=== PATIENT | female | born 1970 | race Caucasian/White ===

== ENCOUNTER → 2016-06-20 | Outpatient (CLI) | payer OTHER ==
[~2016-06-20] MED LIST: ADVIN50/60 INH; ALBUAER19 INH; BUPR200T2 PO; CETI10TA84 PO; CHOL20009 PO; CLR10 PO; FLUO40CA8 PO; GEMF600T3 PO; GUAI100L PO; HYDR-5688 PO; IPRA1AER2 INH; LANS15TA2 PO; MEDR5TAB PO; MELO7.5T7 PO; MONT1TAB3 PO; OMEP20CA9 PO; ONDA4TAB4 PO; ONDA4TAB46 PO; PRED10TA PO; PRED50TA PO; RANI300T2 PO; TEMA30CA4 PO
--- NOTE | 2016-06-20 10:58 | DIAGNOSTIC IMAGING REPORT ---
CHEST 2 VIEWS ROUTINE CLINICAL HISTORY: Shortness of breath COUGH COMPARISON STUDY: 06/06/2012 FINDINGS: The heart is normal in size. There is stable mild elevation/eventration right hemidiaphragm. There is no focal pulmonary consolidation. There is no failure. There are no pleural effusions.[ IMPRESSION: No active disease in the chest. Electronically signed by: Tomas Denney M.D. 06/20/2016 10:56 AM
== END | disposition home or self-care (01) ==
LOC: C.RADPV 10:42
PROVIDERS: ATTEND Family Medicine
DX: R06.02 Shortness of breath (principal)

== ENCOUNTER → 2016-08-10 | Outpatient (CLI) | payer OTHER ==
[2016-08-10 12:59] LABS: BLOOD UREA NITROGEN 16 mg/dl (7-18); BUN/CREATININE RATIO 14.1 (10-20); CALCIUM 9.3 mg/dl (8.5-10.1); CARBON DIOXIDE 27 mmol/L (21-32); CHLORIDE 100 mmol/L (98-107); GLUCOSE 105 mg/dl (70-99); POTASSIUM 3.8 mmol/L (3.5-5.1); SODIUM 137 mmol/L (136-145)
[2016-08-10 13:38] LABS: CHOLESTEROL/HDL RATIO 3.8
== END | disposition home or self-care (01) ==
LOC: C.LABPVFM 09:55
PROVIDERS: ATTEND Nurse Practitioner
DX: R73.01 Impaired fasting glucose (principal); E78.1 Pure hyperglyceridemia; F32.9 Major depressive disorder, single episode, unspecified

== ENCOUNTER → 2016-08-18 | Outpatient (CLI) | payer OTHER ==
[2016-08-18 12:27] LABS: BASO % 0.5 %; BASO ABS # 0.06 K/uL (0-0.2); COMPLETE YES; HEMATOCRIT 42.1 % (37-47); IG% 0.6 %; LYMPH % 32.9 %; LYMPH ABS # 3.71 K/uL (1.2-3.4); MEAN CELL VOLUME 87.9 fL (80-100); MEAN CORPUSCULAR HEMOGLOBIN 30.3 pg (25-34); MEAN CORPUSCULAR HGB CONC 34.4 g/dl (32-36); MEAN PLATELET VOLUME 11.4 fL (7.4-10.4); MONO % 9.4 %; NEUT % 55.6 %; PLATELET COUNT 297 K/uL (130-400); RED BLOOD COUNT 4.79 M/uL (4.2-5.4); WHITE BLOOD COUNT 11.27 K/uL (4.8-10.8)
[2016-08-18 13:20] LABS: ESTIMATED AVERAGE GLUCOSE 117 mg/dl; HA1C FLAG Normal (Normal)
== END | disposition home or self-care (01) ==
LOC: C.LABPVFM 08:45
PROVIDERS: ATTEND Nurse Practitioner
DX: E55.9 Vitamin D deficiency, unspecified (principal); R53.83 Other fatigue

== ENCOUNTER 2016-09-19 09:21 | Emergency (ER) | payer OTHER ==
[~2016-09-19] VITALS: Ht 170.2 cm; Wt 109.5 kg
[~2016-09-19 09:21] MED LIST changes: -ADVIN50/60 INH; -CETI10TA84 PO; -CHOL20009 PO; -GEMF600T3 PO; -IPRA1AER2 INH; -LANS15TA2 PO; -MELO7.5T7 PO; -MONT1TAB3 PO; -ONDA4TAB46 PO; -PRED10TA PO; -PRED50TA PO; -RANI300T2 PO
[2016-09-19 09:25] VITALS: TEMP 36.9; Ht 170.2 cm; Wt 109.5 kg
[2016-09-19] MEDS ORDERED: LANS15TA2 PO (09:43)
[2016-09-19] MEDS ORDERED: RANI300T2 PO (09:43)
[2016-09-19] MEDS ORDERED: GEMF600T3 PO (09:43)
[2016-09-19] MEDS ORDERED: MELO7.5T7 PO (09:43)
[2016-09-19] MEDS ORDERED: PRED10TA PO (09:43)
[2016-09-19] MEDS ORDERED: IPRA1AER2 INH (09:43)
[2016-09-19] MEDS ORDERED: CETI10TA84 PO (09:43)
[2016-09-19] MEDS ORDERED: ONDA4TAB46 PO (09:43)
[2016-09-19] MEDS ORDERED: ADVIN50/60 INH (09:43)
[2016-09-19] MEDS ORDERED: MONT1TAB3 PO (09:43)
[2016-09-19] MEDS ORDERED: CHOL20009 PO (09:43)
[2016-09-19] MEDS ORDERED: ALBUT/IPRATROP 3MG/0.5MG NEB 3 ML VIAL INH ONE (09:45)
--- NOTE | 2016-09-19 09:48 | EMERGENCY ROOM VISIT NOTE ---
History Report prepared by Elizabeth: Patti Posada Under the Supervision of: Dr. Denny Reyes M.D. First contact with patient: 09:41 Chief Complaint: SHORTNESS OF BREATH Stated Complaint: SOB/ HAS ASTHMA Nursing Triage Summary: States she feels short of breath and has a productive cough of clear phlegm, hx of asthma, using inhaler, prednisone and abx, seen outpatient on 09/07 with no improvement. Able to speak full sentences in triage. Not using accessory muscles. History of Present Illness The patient is a 46 year old female who presents to the Emergency Room with complaints of worsening shortness of breath over the past couple of weeks. She also complains of a productive cough with clear sputum. The patient has a history of asthma and has been using her inhaler and nebulizer treatments without relief. Per nursing notes, the patient was seen on September 07 for similar symptoms and was put on 5 days TID prednisone and a Z-Gabe. She has not had any relief since then. She does not have a history of smoking. Denies fever or other complaints. Source of History: patient, nursing staff Onset: a couple weeks ago Position: other (respiratory) Quality: other (shortness of breath) Timing: worsening Associated Symptoms: + cough (productive with clear sputum), No fevers Review of Systems All systems have been listed, reviewed, and are negative other than those previously mentioned. Please see Additional Medical History Sheet. Past Medical & Surgical Medical Problems: (1) ASTHMA, UNSPECIFIED (2) DEPRESSIVE DISORDER NEC (3) DIAB ISAIAS WO COMPL, TYPE II OR UNSPEC TYPE, NOT UNCNTRLD (4) HYPERTENSION NOS (5) MIXED HYPERLIPIDEMIA (6) PNEUMONIA, ORGANISM NOS Family History Cancer Diabetes mellitus Heart disease Hypertension Social History Smoking Status: Never Smoker Alcohol Use: none Housing Status: lives with family Occupation Status: unemployed Current/Historical Medications Scheduled Bupropion (Wellbutrin Sr), 200 MG PO BID Cetirizine (Zyrtec), 10 MG PO DAILY Cholecalciferol (Vitamin D), 1 TAB PO DAILY Fluticasone Prop/Salmeterol (Advair Diskus 500/50 60 Dose), 1 PUFFS INH BID Gemfibrozil (Lopid), 1 TAB PO BID Ipratropium-Albuterol (Combivent Respimat), 1 PUFFS INH QID Lansoprazole (Prevacid Solutab), 15 MG PO DAILY Meloxicam (Mobic), 7.5 MG PO BID Montelukast Sodium (Singulair), 10 MG PO HS Prednisone (Prednisone), 50 MG PO DAILY Ranitidine (Zantac), 300 MG PO HS Scheduled PRN Ondansetron Hcl (Zofran), 4 MG PO Q6 PRN for Nausea Miscellaneous Medications Prednisone Tab (Prednisone), 10 MG PO Allergies Coded Allergies: Terbinafine (Verified Allergy, Intermediate, rash, 09/19/16) Caffeine (Verified Allergy, Unknown, 09/19/16) Codeine (Verified Allergy, Unknown, 09/19/16) Physical Exam Vital Signs Date Time Temp Pulse Resp B/P Pulse Ox O2 Delivery O2 Flow Rate FiO2 09/19/16 12:44 116 16 141/95 97 09/19/16 11:16 106 16 136/76 100 Nebulizer 09/19/16 10:29 85 18 97 Room Air 09/19/16 09:53 98 20 143/99 97 Room Air 09/19/16 09:52 97 Room Air 09/19/16 09:52 91 09/19/16 09:28 98 Room Air 09/19/16 09:25 36.9 94 20 157/100 98 Room Air Physical Exam GENERAL: Patient awake, alert, oriented x 3. Patient follows commands. Patient does not appear toxic. Patient is adequately hydrated and well- nourished. Patient appears short of breath and in moderate distress. SKIN: No erythema, pallor, cyanosis or rash HEENT: Normal head, pupils equal, reactive to light and accommodation. Ears normal. Oral cavity and posterior pharynx appear normal. Neck: Without adenopathy, no neck vein distention. LUNGS: Wheezes in all martines to auscultation. No rales, no rhonchi. HEART: No murmurs. No gallops. No rubs ABDOMEN: Obese. No masses, no rebound, no hepatomegaly or splenomegaly. EXTREMITIES: No signs of trauma. No pedal or pretibial edema. No calf or thigh tenderness. NEUROLOGIC: Cranial nerves II-XII within normal limits. No gross motor sensory function deficits. Medical Decision & Procedures ER Provider Diagnostic Interpretation: Radiology results as stated below per my review and radiologist interpretation: CHEST 2 VIEWS ROUTINE HISTORY: Cough. Short of breath. COMPARISON: Chest 06/20/2016. FINDINGS: The lungs are clear. Cardiac silhouette is normal in size. No pleural effusions. No pneumothorax. IMPRESSION: No acute process. Electronically signed by: Obie Bradshaw M.D. 09/19/2016 10:33 AM Dictated Date/Time: 09/19/2016 10:31 AM Laboratory Results 09/19/16 10:07 Red Blood Count 4.92, Mean Corpuscular Volume 86.8, Mean Corpuscular Hemoglobin 29.1, Mean Corpuscular Hemoglobin Concent 33.5, Mean Platelet Volume 10.3, Neutrophils (%) (Auto) 65.9, Lymphocytes (%) (Auto) 24.8, Monocytes (%) (Auto) 7.6, Eosinophils (%) (Auto) 0.9, Basophils (%) (Auto) 0.4, Neutrophils # (Auto) 4.40, Lymphocytes # (Auto) 1.66, Monocytes # (Auto) 0.51, Eosinophils # (Auto) 0.06, Basophils # (Auto) 0.03 09/19/16 10:07 Test 09/19/16 10:07 White Blood Count 6.69 K/uL (4.8-10.8) Red Blood Count 4.92 M/uL (4.2-5.4) Hemoglobin 14.3 g/dL (12.0-16.0) Hematocrit 42.7 % (37-47) Mean Corpuscular Volume 86.8 fL (80-100) Mean Corpuscular Hemoglobin 29.1 pg (25-34) Mean Corpuscular Hemoglobin Concent 33.5 g/dl (32-36) Platelet Count 261 K/uL (130-400) Mean Platelet Volume 10.3 fL (7.4-10.4) Neutrophils (%) (Auto) 65.9 % Lymphocytes (%) (Auto) 24.8 % Monocytes (%) (Auto) 7.6 % Eosinophils (%) (Auto) 0.9 % Basophils (%) (Auto) 0.4 % Neutrophils # (Auto) 4.40 K/uL (1.4-6.5) Lymphocytes # (Auto) 1.66 K/uL (1.2-3.4) Monocytes # (Auto) 0.51 K/uL (0.11-0.59) Eosinophils # (Auto) 0.06 K/uL (0-0.5) Basophils # (Auto) 0.03 K/uL (0-0.2) RDW Standard Deviation 41.7 fL (36.4-46.3) RDW Coefficient of Variation 13.0 % (11.5-14.5) Immature Granulocyte % (Auto) 0.4 % Immature Granulocyte # (Auto) 0.03 K/uL (0.00-0.02) Anion Gap 8.0 mmol/L (3-11) Est Creatinine Clear Calc Drug Dose 101.7 ml/min Estimated GFR () 90.1 Estimated GFR (Non- 77.8 BUN/Creatinine Ratio 18.2 (10-20) Calcium Level 9.6 mg/dl (8.5-10.1) Laboratory results as stated above per my review. Medications Administered Medications (Trade) Dose Ordered Sig/Anand Route Start Time Stop Time Status Last Admin Dose Admin Albuterol/ Ipratropium (Duoneb) 12 ml ONE ONCE INH 09/19/16 09:45 09/19/16 09:46 DC 09/19/16 09:45 12 ML Prednisone (PredniSONE TAB) 60 mg NOW STAT PO 09/19/16 12:15 09/19/16 12:16 DC 09/19/16 12:39 60 MG ECG Indication: SOB/dyspnea Rate (beats per minute): 92 Rhythm: normal sinus Findings: no acute ischemic change, no ectopy ED Course 0942: Past medical records reviewed. The patient was evaluated in room B8. A complete history and physical examination was performed. 0945: Ordered DuoNeb 12 ml INH. 1101: I reassessed the patient. She was feeling better. 1215: Ordered Prednisone 60 mg PO. 1219: Upon reevaluation, the patient appeared to have improvement of her symptoms. She was wheeze-free on exam. I discussed today's findings with the patient. He verbalized agreement of the treatment plan. The patient was discharged home. Medical Decision Differential includes but is not limited to acute bronchitis, pneumonia, asthma , PE. Multiple labs, EKG and imaging were obtained. Please see above. The patient was given a breathing treatment. The patient did improve markedly. The patient does not have symptoms at this time to suggest a PE. I do not think she needs a CT scan. The patient was given prednisone and will continue that medication along with her albuterol at home. She is to follow-up with her family physician within 7 days. Impression Primary Impression: Acute asthmatic bronchitis Scribe Attestation The scribe's documentation has been prepared under my direction and personally reviewed by me in its entirety. I confirm that the note above accurately reflects all work, treatment, procedures, and medical decision making performed by me. Departure Information Dispostion Home / Self-Care Prescriptions Prednisone (PREDNISONE) 50 Mg Tab 50 MG PO DAILY for 4 Days, #4 TAB Prov: Denny Reyes M.D. 09/19/16 Referrals Deann Delvalle C.R.N.P (PCP) Patient Instructions Bronchitis Acute Dc, My [facility] Additional Instructions 50 mg of prednisone daily starting tomorrow. Continue all of your current medications as prescribed. Follow-up with your family physician within the next 7 days. Return here sooner if you become more short of breath.
[2016-09-19 09:52] VITALS: O2SAT 97
[2016-09-19 10:20] LABS: BASO % 0.4 %; BASO ABS # 0.03 K/uL (0-0.2); COMPLETE YES; EOS % 0.9 %; HEMATOCRIT 42.7 % (37-47); IG% 0.4 %; LYMPH % 24.8 %; LYMPH ABS # 1.66 K/uL (1.2-3.4); MEAN CELL VOLUME 86.8 fL (80-100); MEAN CORPUSCULAR HEMOGLOBIN 29.1 pg (25-34); MEAN CORPUSCULAR HGB CONC 33.5 g/dl (32-36); MEAN PLATELET VOLUME 10.3 fL (7.4-10.4); MONO % 7.6 %; NEUT % 65.9 %; PLATELET COUNT 261 K/uL (130-400); RED BLOOD COUNT 4.92 M/uL (4.2-5.4); WHITE BLOOD COUNT 6.69 K/uL (4.8-10.8)
[2016-09-19 10:29] VITALS: PULSE 85; O2SAT 97
--- NOTE | 2016-09-19 10:34 | DIAGNOSTIC IMAGING REPORT ---
CHEST 2 VIEWS ROUTINE HISTORY: Cough. Short of breath. COMPARISON: Chest 06/20/2016. FINDINGS: The lungs are clear. Cardiac silhouette is normal in size. No pleural effusions. No pneumothorax. IMPRESSION: No acute process. Electronically signed by: Obie Bradshaw M.D. 09/19/2016 10:33 AM Dictated Date/Time: 09/19/2016 10:31 AM
[2016-09-19 10:41] LABS: BUN/CREATININE RATIO 18.2 (10-20); CALCIUM 9.6 mg/dl (8.5-10.1); CREATININE 0.9 mg/dl (0.60-1.20); POTASSIUM 3.9 mmol/L (3.5-5.1)
[2016-09-19] MEDS ORDERED: PRED50TA PO (12:29)
[2016-09-19 12:44] VITALS: BP 141/95; PULSE 116; O2SAT 97
== END 2016-09-19 12:45 | disposition home or self-care (01) ==
LOC: C.EDB 09:22
DX: J45.909 Unspecified asthma, uncomplicated (principal); F32.9 Major depressive disorder, single episode, unspecified; E11.9 Type 2 diabetes mellitus without complications; I10 Essential (primary) hypertension; E78.5 Hyperlipidemia, unspecified; Z80.9 Family history of malignant neoplasm, unspecified; Z83.3 Family history of diabetes mellitus; Z82.49 Family history of ischemic heart disease and other diseases of the circulatory system; Z79.899 Other long term (current) drug therapy

== ENCOUNTER → 2016-10-11 | Outpatient (CLI) | payer OTHER ==
[~2016-10-11] MED LIST changes: +ADVIN50/60 INH; -ALBUAER19 INH; +CETI10TA84 PO; +CHOL20009 PO; -CLR10 PO; -FLUO40CA8 PO; +GEMF600T3 PO; -GUAI100L PO; -HYDR-5688 PO; +IPRA1AER2 INH; +LANS15TA2 PO; -MEDR5TAB PO; +MELO7.5T7 PO; +MONT1TAB3 PO; -OMEP20CA9 PO; -ONDA4TAB4 PO; +ONDA4TAB46 PO; +PRED10TA PO; +RANI300T2 PO; -TEMA30CA4 PO
--- NOTE | 2016-10-11 14:36 | MAMMOGRAPHY REPORT ---
BILATERAL DIGITAL SCREENING MAMMOGRAM TOMOSYNTHESIS WITH CAD: 10/11/2016 CLINICAL HISTORY: Routine screening. Patient has no complaints. TECHNIQUE: Breast tomosynthesis in addition to standard 2D mammography was performed. Current study was also evaluated with a Computer Aided Detection (CAD) system. COMPARISON: Comparison is made to exams dated: 10/11/2015 mammogram, 10/08/2014 mammogram, 10/07/2013 mammogram, and 10/02/2012 mammogram - [facility]. BREAST COMPOSITION: There are scattered areas of fibroglandular density in both breasts. FINDINGS: No suspicious masses, calcifications, or areas of architectural distortion are noted in e ither breast. There has been no significant interval change compared to prior exams. Scattered bilat eral benign-appearing calcifications are not significantly changed. IMPRESSION: ACR BI-RADS CATEGORY 2: BENIGN There is no mammographic evidence of malignancy. A 1 year screening mammogram is recommended. The p atient will receive written notification of the results. Approximately 10% of breast cancers are not detected with mammography. A negative mammographic repor t should not delay biopsy if a clinically suggestive mass is present. Lainey Diallo M.D. /:10/11/2016 10:55:36 Snagger: Ro Horton, [facility] letter sent: Normal 1/2 BI-RADS Code: ACR BI-RADS Category 2: Benign
== END | disposition home or self-care (01) ==
LOC: C.MAMM 08:59
PROVIDERS: ATTEND Obstetrics & Gynecology
DX: Z12.31 Encounter for screening mammogram for malignant neoplasm of breast (principal)

== ENCOUNTER → 2016-10-16 | Outpatient (CLI) | payer OTHER | END | disposition home or self-care (01) | LOC: C.PAPS 14:33 | PROVIDERS: ATTEND Obstetrics & Gynecology | DX: Z12.4 Encounter for screening for malignant neoplasm of cervix (principal); Z87.898 Personal history of other specified conditions ==

== ENCOUNTER → 2017-01-25 | Outpatient (CLI) | payer OTHER ==
--- NOTE | 2017-01-25 08:27 | DIAGNOSTIC IMAGING REPORT ---
GI SERIES W/AIR ROUTINE CLINICAL HISTORY: REFLUX/COUGH COMPARISON STUDY: None. FLUOROSCOPY TIME: 2.4 minutes. FINDINGS: 19 images submitted. The patient swallowed barium without difficulty. The esophagus is normal in course, caliber, motility. No hiatus hernia. No gastroesophageal reflux. No gastric ulcerations. The duodenal bulb and duodenal C sweep are within normal limits. IMPRESSION: Normal upper GI series. Electronically signed by: Obie Bradshaw M.D. 01/25/2017 8:26 AM Dictated Date/Time: 01/25/2017 8:22 AM
== END | disposition home or self-care (01) ==
LOC: C.RAD 07:15
PROVIDERS: ATTEND Nurse Practitioner
DX: K21.9 Gastro-esophageal reflux disease without esophagitis (principal); R05 Cough

== ENCOUNTER → 2017-05-01 | Outpatient (CLI) | payer OTHER ==
[2017-05-01 17:33] LABS: BLOOD UREA NITROGEN 17 mg/dl (7-18); BUN/CREATININE RATIO 16.9 (10-20); CALCIUM 9.3 mg/dl (8.5-10.1); CARBON DIOXIDE 29 mmol/L (21-32); CHLORIDE 102 mmol/L (98-107); CREATININE 0.98 mg/dl (0.60-1.20); GLUCOSE 103 mg/dl (70-99); SODIUM 138 mmol/L (136-145)
[2017-05-02 06:11] LABS: ESTIMATED AVERAGE GLUCOSE 114 mg/dl; HA1C FLAG Normal (Normal)
== END | disposition home or self-care (01) ==
LOC: C.LABPVFM 13:29
PROVIDERS: ATTEND Nurse Practitioner
DX: R73.01 Impaired fasting glucose (principal); K21.9 Gastro-esophageal reflux disease without esophagitis; E55.9 Vitamin D deficiency, unspecified

== ENCOUNTER → 2017-06-07 | Outpatient (CLI) | payer OTHER | END | disposition home or self-care (01) | LOC: C.LABPVFM 15:46 | PROVIDERS: ATTEND Nurse Practitioner | DX: J06.9 Acute upper respiratory infection, unspecified (principal) ==

== ENCOUNTER → 2017-08-31 | Outpatient (CLI) | payer OTHER ==
--- NOTE | 2017-08-31 10:41 | DIAGNOSTIC IMAGING REPORT ---
R PELVIS/UNILATERAL HIP 2-3VIEWS CLINICAL HISTORY: RIGHT HIP PAIN COMPARISON: Pelvis radiograph December 12, 2012. FINDINGS: Sacroiliac joints and symphysis pubis are intact. There are pelvic surgical clips. No acute fracture is identified within the pelvis or hips. There is no radiographic evidence of avascular necrosis. Hip joint spaces are preserved. There is mild osteophytosis and subchondral sclerosis of the right hip. There is mild osteophytosis of the left hip. IMPRESSION: 1. No acute fracture within the pelvis or hips. 2. Mild to moderate right hip osteoarthritis. Electronically signed by: Milton Madrigal M.D. 08/31/2017 10:39 AM Dictated Date/Time: 08/31/2017 10:38 AM
== END | disposition home or self-care (01) ==
LOC: C.RADPV 10:02
PROVIDERS: ATTEND Nurse Practitioner Family
DX: M25.551 Pain in right hip (principal)

== ENCOUNTER → 2017-10-12 | Outpatient (CLI) | payer OTHER ==
--- NOTE | 2017-10-15 07:49 | MAMMOGRAPHY REPORT ---
BILATERAL DIGITAL SCREENING MAMMOGRAM TOMOSYNTHESIS WITH CAD: 10/12/2017 CLINICAL HISTORY: Routine screening. TECHNIQUE: Breast tomosynthesis in addition to standard 2D mammography was performed. Current study was also evaluated with a Computer Aided Detection (CAD) system. COMPARISON: Comparison is made to exams dated: 10/11/2016 mammogram, 10/11/2015 mammogram, 10/08/2014 m ammogram, 10/07/2013 mammogram, and 10/02/2012 mammogram - [facility]. BREAST COMPOSITION: There are scattered areas of fibroglandular density in both breasts. FINDINGS: No suspicious masses, calcifications, or areas of architectural distortion are noted in ei ther breast. There has been no significant interval change compared to prior exams. Scattered bilater al benign-appearing calcifications are not significantly changed. IMPRESSION: ACR BI-RADS CATEGORY 2: BENIGN There is no mammographic evidence of malignancy. A 1 year screening mammogram is recommended. The pa tient will receive written notification of the results. Approximately 10% of breast cancers are not detected with mammography. A negative mammographic report should not delay biopsy if a clinically suggestive mass is present. Lainey Diallo M.D. ah/:10/12/2017 09:59:10 Enterprise Sales Executive: Luciana BUITRAGO(Ernesto)(M), [facility] letter sent: Normal 1/2 BI-RADS Code: ACR BI-RADS Category 2: Benign
== END | disposition home or self-care (01) ==
LOC: C.MAMM 09:30
PROVIDERS: ATTEND Obstetrics & Gynecology
DX: Z12.31 Encounter for screening mammogram for malignant neoplasm of breast (principal)

== ENCOUNTER → 2017-10-17 | Outpatient (CLI) | payer OTHER | END | disposition home or self-care (01) | LOC: C.PAPS 13:42 | PROVIDERS: ATTEND Obstetrics & Gynecology | DX: Z01.419 Encounter for gynecological examination (general) (routine) without abnormal findings (principal); Z87.898 Personal history of other specified conditions ==

== ENCOUNTER → 2017-10-29 | Outpatient (CLI) | payer OTHER ==
--- NOTE | 2017-10-29 10:11 | DIAGNOSTIC IMAGING REPORT ---
L-SPINE MIN 4 VIEWS ROUTINE CLINICAL HISTORY: Low back pain, radiating to the hips/legs COMPARISON STUDY: 12/12/2012 FINDINGS: There is a mild spinal curvature convex to the left. There is no pathologic bowel dilatation. There are surgical clips the right upper quadrant consistent with a prior cholecystectomy. Pelvic surgical clips possibly secondary to tubal ligation are also evident. There are no acute fractures or subluxations. There are persistent degenerative changes most pronounced at the L5-S1 level. IMPRESSION: 1. No acute fractures or genetic subluxations 2. Degenerative changes the L5-S1 level. Electronically signed by: Tomas Denney M.D. 10/29/2017 10:10 AM Dictated Date/Time: 10/29/2017 10:08 AM
[2017-10-29 12:58] LABS: BLOOD UREA NITROGEN 24 mg/dl (7-18); CALCIUM 9.1 mg/dl (8.5-10.1); CARBON DIOXIDE 29 mmol/L (21-32); CREATININE 0.96 mg/dl (0.60-1.20); GLUCOSE 111 mg/dl (70-99); POTASSIUM 3.9 mmol/L (3.5-5.1); SODIUM 139 mmol/L (136-145)
[2017-10-29 13:10] LABS: CHOLESTEROL 174 mg/dl (0-200); LDL CHOLESTEROL CALCULATED 107 mg/dl
== END | disposition home or self-care (01) ==
LOC: C.LABPVFM 09:44
PROVIDERS: ATTEND Nurse Practitioner
DX: M79.606 Pain in leg, unspecified (principal); M54.5 Low back pain; R53.83 Other fatigue; J45.909 Unspecified asthma, uncomplicated; E87.1 Hypo-osmolality and hyponatremia